=== PATIENT | female | born 1955 | race Caucasian/White ===

== ENCOUNTER 2017-07-24 19:51 | Emergency (ER) | payer BC ==
[2017-07-24 20:21] VITALS: BP 130/88
--- NOTE | 2017-07-24 20:50 | UC ---
General HPI - HPI Summary HPI Summary: 62 year old female with no significant pmhx here for BP check. Patient reports her BP has been elevated than usual in SBP of 170-190s with DBP 80-90. Patient denies cp, sob, cough, headache, focal weakness or any other complaints. - History of Current Complaint Chief Complaint: UCGeneralIllness Stated Complaint: CONCERN ABOUT BLOOD PRESSURE Time Seen by Provider: 07/24/17 20:04 Hx Obtained From: Patient Onset/Duration: Lasting Days Timing: Constant Current Severity: None Pain Intensity: 0 Associated Signs & Symptoms: Negative: Agitation, Abdominal Pain, Back Pain, Chest Pain, Dizziness, Headache, Hematemesis, Nausea, Palpitations, Recent Medication Changes, Syncope, Vomiting - Allergy/Home Medications Allergies/Adverse Reactions: Allergies Allergy/AdvReac Type Severity Reaction Status Date / Time No Known Allergies Allergy Verified 03/13/17 10:51 PMH/Surg Hx/FS Hx/Imm Hx - Surgical History Surgery Procedure, Year, and Place: myomectomy, 3 c sections - Family History Known Family History: Positive: None - Social History Alcohol Use: None Substance Use Type: None Smoking Status (MU): Never Smoked Tobacco Review of Systems Constitutional: Negative Skin: Negative Eyes: Negative ENT: Negative Respiratory: Negative Cardiovascular: Negative Gastrointestinal: Negative Genitourinary: Negative Motor: Negative Neurovascular: Negative Musculoskeletal: Negative Neurological: Negative Psychological: Negative All Other Systems Reviewed And Are Negative: Yes Physical Exam Triage Information Reviewed: Yes Appearance: Well-Appearing, No Pain Distress Vital Signs: Initial Vital Signs Temp 36.7 C 07/24/17 20:06 Pulse 68 07/24/17 20:06 BP 178/87 07/24/17 20:06 Pulse Ox 100 07/24/17 20:06 Eye Exam: Normal ENT Exam: Normal Dental Exam: Normal Neck exam: Normal Neck: Positive: 1 Respiratory Exam: Normal Cardiovascular Exam: Normal Abdominal Exam: Normal Musculoskeletal Exam: Normal Neurological Exam: Normal Psychological Exam: Normal Skin Exam: Normal Course/Dx - Course Course Of Treatment: Asymptomatic htn. Patient was found to be 177/87 but on repeat she was found to be 130/88. She has no symptoms here. I have reassured patient that she needs to follow up with PMD, and no need to initiate BP treatment here. - Differential Dx - Multi-Symptom Provider Diagnoses: Concern for elevated BP Discharge - Discharge Plan Condition: Good Disposition: HOME Patient Education Materials: How to Take a Blood Pressure (ED), Hypertension in the Older Adult (ED) Referrals: Ion Nguyen MD [Primary Care Provider] - Additional Instructions: Follow up with your primary care doctor
== END 2017-07-24 20:59 | disposition home or self-care (01) ==
LOC: UCEAST 19:51
DX: R03.0 Elevated blood-pressure reading, without diagnosis of hypertension (principal)
CPT/HCPCS: 99212; G0463